=== PATIENT | female | born 1990 | race Two or more races ===

== ENCOUNTER 2017-10-19 11:27 | Inpatient (IN) | payer OTHER ==
[2017-10-19] MEDS ORDERED: LACTATED RINGER'S 1,000 ML IV (13:53)
[2017-10-19] MEDS ORDERED: BUTORPHANOL 2 MG INJ IV (14:00)
[2017-10-19] MEDS ORDERED: ACETAMINOPHEN/CODEINE #3 TAB PO (14:00)
[2017-10-19] MEDS ORDERED: MISOPROSTOL 200 MCG TAB PR ×2 (14:00→21:00)
[2017-10-19] MEDS ORDERED: OXYTOCIN 30 UNITS/LR 500 ML IV ×2 (14:00→21:00)
[2017-10-19] MEDS ORDERED: CARBOPROST 250 MCG INJ IM ×2 (14:00→21:00)
[2017-10-19] MEDS ORDERED: IBUPROFEN 600 MG TAB PO (14:00)
[2017-10-19] MEDS ORDERED: METHYLERGONOVINE 0.2 MG INJ IM ×2 (14:00→21:00)
[2017-10-19] MEDS: LACTATED RINGER'S 1,000 ML IV* (14:45)
[2017-10-19 14:46] LABS: ADD MAN DIFF? NO
[2017-10-19 14:50] LABS: WHITE BLOOD COUNT 11.8 10^3/ul (4.8-10.8)
[2017-10-19 14:50] LABS: BASOPHIL # 0.1 10^3/ul (0.0-0.1); BASOPHILS % 0.5 % (0.0-2.0); EOSINOPHILS % 0.2 % (0.0-7.0); HEMATOCRIT 36.4 % (37.0-47.0); HEMOGLOBIN 11.6 g/dl (12.0-16.0); LYMPHOCYTES # 2.8 10^3/ul (0.8-2.9); LYMPHOCYTES % 23.7 % (15.0-51.0); MEAN CORPUSCULAR HEMOGLOBIN 26.7 pg (29.0-33.0); MEAN CORPUSCULAR HGB CONC 31.9 g/dl (32.0-37.0); MEAN CORPUSCULAR VOLUME 83.7 fl (82.0-101.0); MEAN PLATELET VOLUME 10.6 fl (7.4-10.4); MONOCYTE # 0.5 10^3/ul (0.3-0.9); MONOCYTES % 4.6 % (0.0-11.0); NEUTROPHIL # 8.3 10^3/ul (1.6-7.5); PLATELET COUNT 239 10^3/UL (140-415); RED BLOOD COUNT 4.35 10^6/ul (4.20-5.40); RED CELL DISTRIBUTION WIDTH 15.6 % (11.5-14.5)
[2017-10-19 15:11] LABS: PROTIME 11.1 Sec (11.9-14.9); PT RATIO 0.9
[2017-10-19 15:12] LABS: PARTIAL THROMBOPLASTIN TIME 25.8 Sec (25.0-35.0)
[2017-10-19 15:39] LABS: HEPATITIS B SURFACE ANTIGEN NEGATIVE (NEGATIVE)
[2017-10-19] MEDS: OXYTOCIN 30 UNITS/LR 500 ML IV ×2 (19:02→19:53)
[2017-10-19] MEDS: LIDOCAINE 1% (MPF) 30 ML INJ INJ (19:04)
[2017-10-19 19:43] LABS: RAPID PLASMA REAGIN NONREACTIVE (NR)
[2017-10-19] MEDS ORDERED: DIBUCAINE 1% 30 GM OINT PR (21:00)
[2017-10-19] MEDS ORDERED: ONDANSETRON 4 MG INJ IV (21:00)
[2017-10-19] MEDS ORDERED: HYDROCODONE/APAP (5/325) TAB PO ×2 (21:00)
[2017-10-19] MEDS ORDERED: ACETAMINOPHEN 325 MG TAB PO (21:00)
[2017-10-19] MEDS: SENNA/DOCUSATE NA (8.6MG/50MG) TAB PO (21:00)
[2017-10-19] MEDS ORDERED: OXYCODONE/ASPIRIN (4.88/325) TAB PO (21:00)
[2017-10-19] MEDS: OXYCODONE/ASPIRIN (4.88/325) TAB PO (21:53)
[2017-10-20] MEDS: LANOLIN 7 GM TUBE TOP (00:02)
[2017-10-20] MEDS: WITCH HAZEL/GLYCERIN PAD PR (00:03)
[2017-10-20] MEDS: BENZOCAINE 20% 56 ML SPRAY TOP (00:03)
[2017-10-20] MEDS: OXYTOCIN 30 UNITS/LR 500 ML IV (00:05)
[2017-10-20] MEDS: IBUPROFEN 600 MG TAB PO ×4 (05:40→19:15)
[2017-10-20] MEDS: SENNA/DOCUSATE NA (8.6MG/50MG) TAB PO ×2 (09:00→22:36)
[2017-10-20 09:09] LABS: ADD MAN DIFF? NO
[2017-10-20 09:13] LABS: WHITE BLOOD COUNT 11.8 10^3/ul (4.8-10.8)
[2017-10-20 09:13] LABS: BASOPHILS % 0.3 % (0.0-2.0); EOSINOPHILS % 0.3 % (0.0-7.0); HEMATOCRIT 34.2 % (37.0-47.0); HEMOGLOBIN 10.9 g/dl (12.0-16.0); LYMPHOCYTES # 2.5 10^3/ul (0.8-2.9); MEAN CORPUSCULAR HEMOGLOBIN 26.8 pg (29.0-33.0); MEAN CORPUSCULAR HGB CONC 31.9 g/dl (32.0-37.0); MEAN CORPUSCULAR VOLUME 84.2 fl (82.0-101.0); MEAN PLATELET VOLUME 10.5 fl (7.4-10.4); MONOCYTE # 0.7 10^3/ul (0.3-0.9); MONOCYTES % 5.9 % (0.0-11.0); NEUTROPHIL # 8.5 10^3/ul (1.6-7.5); NEUTROPHILS % 71.9 % (39.0-77.0); PLATELET COUNT 233 10^3/UL (140-415); RED BLOOD COUNT 4.06 10^6/ul (4.20-5.40); RED CELL DISTRIBUTION WIDTH 15.3 % (11.5-14.5)
[2017-10-20] MEDS: OXYCODONE/ASPIRIN (4.88/325) TAB PO (15:52)
[2017-10-21] MEDS: IBUPROFEN 600 MG TAB PO ×3 (00:21→12:12)
[2017-10-21] MEDS: SENNA/DOCUSATE NA (8.6MG/50MG) TAB PO (08:28)
[2017-10-21] MEDS: MEASLES,MUMPS,RUBELLA VACCINE INJ SC* (08:28)
== END 2017-10-21 14:55 | disposition home or self-care (01) | DRG 775 ==
LOC: OBT 11:27 → L-D 11:27 → OBT 13:36 → L-D 13:36 → PP1 22:05
PROVIDERS: Obstetrics & Gynecology
PROC: 10E0XZZ Delivery of Products of Conception, External Approach (ICD-10-PCS; principal; 2017-10-19)
PROC: 0HQ9XZZ Repair Perineum Skin, External Approach (ICD-10-PCS; 2017-10-19)
DX: O70.0 First degree perineal laceration during delivery (principal); Z3A.40 40 weeks gestation of pregnancy; Z37.0 Single live birth
CPT/HCPCS: 76815; 76818; 85025; 85610; 85730; 86592; 86850; 86900; 86901; 87340